=== PATIENT | male | born 1960 | race Caucasian/White ===

== ENCOUNTER 2017-02-06 16:57 | Emergency (ER) | payer OTHER ==
--- NOTE | ~2017-02-06 | CT71 ---
[facility] A Service of [facility] RADIOLOGY TEXT RESULTS PATIENT: TITA RAMON LOCATION: SED : 64 UNIT #: [id number] AGE: [address]: Stefani Cross SEX: M ORDER DR: [id number] [place] [id number] E MR#: [id number] Acc #: [id number] NAME: TITA RAMON : 1960 SEX: M STUDY DATE/TIME: 02/06/2017 17:27 UNIT: SED ROOM: STUDY DESCRIPTION: CT Head Wo Contrast Attending Physician: Stefani Cross P.A.-C. Ordering Physician: Stefani Cross P.A.-C. Primary Care Physician: Jovanna Shelley M.D. MEDICAL IMAGING REPORT This report is preliminary unless electronic signature is present. EXAM CT brain without contrast HISTORY Fell and hit head today. Headache. FINDINGS This CT exam was performed with one or more of the following radiation dose reduction techniques: Automatic exposure control, adjustment of mA and/or kV according to patient size, and iterative reconstruction. CT brain without contrast demonstrates soft tissue contusion over the anterior left frontal scalp. No intracranial hemorrhage, mass or edema. No midline shift or ventricular dilatation or extraaxial fluid collection. Opacification of mastoid air cells bilaterally and mucosal thickening in ethmoid air cells bilaterally and in the left frontal sinus. IMPRESSION 1. Negative CT brain. 2. Small anterior left frontal scalp contusion. 3. Paranasal sinus mucosal thickening. Dictated by... Adama Kitchen M.D. THIS IS AN ELECTRONICALLY VERIFIED REPORT Adama Kitchen M.D. at 02/06/2017 10:51 PM DFL/psc TD: 02/06/2017 20:53 JOB #: [id number] [facility] A Service [facility] RADIOLOGY TEXT RESULTS PATIENT: TITA RAMON LOCATION: SED : 64 UNIT #: [id number] AGE: [address]: Stefani Cross SEX: M ORDER DR: MEDICAL IMAGING REPORT Page 1 of 1
--- NOTE | ~2017-02-06 | CT101 ---
[facility] A Service of [facility] RADIOLOGY TEXT RESULTS PATIENT: TITA RAMON LOCATION: SED : 64 UNIT #: [id number] AGE: [address]: Stefani Cross SEX: M ORDER DR: [id number] [place] [id number] E MR#: [id number] Acc #: [id number] NAME: TITA RAMON : 1960 SEX: M STUDY DATE/TIME: 02/06/2017 17:29 UNIT: SED ROOM: STUDY DESCRIPTION: CT Maxillofacial Area Wo Cont Attending Physician: Stefani Cross P.A.-C. Ordering Physician: Stefani Cross P.A.-C. Primary Care Physician: Jovanna Shelley M.D. MEDICAL IMAGING REPORT This report is preliminary unless electronic signature is present. EXAM CT maxillofacial bones HISTORY Tripped and fell, hit face on tile floor today, headache. TECHNIQUE Axial noncontrast imaging was performed through the maxillofacial bones. This CT exam was performed with one or more of the following radiation dose reduction techniques: Automatic exposure control, adjustment of mA and/or kV according to patient size, and iterative reconstruction. FINDINGS Examination demonstrates a minimally displaced nasal bone fracture predominantly involving the right nasal ala. Mild soft tissue swelling. Sinuses and orbits appear intact. Left frontal, bilateral ethmoid sinus mucosal disease noted. Patient is edentulous. The mandible appears intact. IMPRESSION Minimally displaced nasal bone fracture with associated soft tissue swelling. Dictated by... Carine Haddad M.D. THIS IS AN ELECTRONICALLY VERIFIED REPORT Carine Haddad M.D. at 02/07/2017 1:06 PM NESS/abhijeet TD: 02/06/2017 20:30 [facility] A Service of [facility] RADIOLOGY TEXT RESULTS PATIENT: TITA RAMON LOCATION: SED : 64 UNIT #: [id number] AGE: [address]: Stefani Cross SEX: M ORDER DR: JOB #: [id number] MEDICAL IMAGING REPORT Page 1 of 1
--- NOTE | ~2017-02-06 | CR63 ---
[facility] A Service of [facility] RADIOLOGY TEXT RESULTS PATIENT: TITA RAMON LOCATION: SED : 64 UNIT #: [id number] AGE: [address]: Stefani Cross SEX: M ORDER DR: [id number] [place] [id number] E MR#: [id number] Acc #: [id number] NAME: TITA RAMON : 1960 SEX: M STUDY DATE/TIME: 02/06/2017 17:31 UNIT: SED ROOM: STUDY DESCRIPTION: CR Chest 2 View Attending Physician: Stefani Cross P.A.-C. Ordering Physician: Stefani Cross P.A.-C. Primary Care Physician: Jovanna Shelley M.D. MEDICAL IMAGING REPORT This report is preliminary unless electronic signature is present. EXAM Portable chest. HISTORY Cough today. FINDINGS 2 views of the chest demonstrate an oblique fracture of the lateral eighth rib with 4 mm separation of the fracture fragment. Small left pleural effusion and mild atelectasis in the left base. No pneumothorax. No additional infiltrates. Mild hypertrophic changes in the lower thoracic spine. Dictated by... Adama Kitchen M.D. THIS IS AN ELECTRONICALLY VERIFIED REPORT Adama Kitchen M.D. at 02/06/2017 10:51 PM TEGAN/amanda TD: 02/06/2017 21:25 JOB #: [id number] MEDICAL IMAGING REPORT Page 1 of 1
[~2017-02-06 16:57] MED LIST: ASPIRIN; BACTRIM DS TABL1 TA1 PO; BRILINTA60 MG; COZAAR; LASIX; LIPITOR; VOLTAREN75 MG PO
== END 2017-02-06 18:50 | disposition home or self-care (01) ==
LOC: SED 16:57
DX: S06.0X9A Concussion with loss of consciousness of unspecified duration, initial encounter (principal); S22.32XA Fracture of one rib, left side, initial encounter for closed fracture; S02.2XXA Fracture of nasal bones, initial encounter for closed fracture; S01.81XA Laceration without foreign body of other part of head, initial encounter; Z23 Encounter for immunization; R05 Cough; J44.9 Chronic obstructive pulmonary disease, unspecified; I10 Essential (primary) hypertension; Z87.891 Personal history of nicotine dependence; W01.0XXA Fall on same level from slipping, tripping and stumbling without subsequent striking against object, initial encounter; Y92.009 Unspecified place in unspecified non-institutional (private) residence as the place of occurrence of the external cause
CPT/HCPCS: 12011; 70450; 70486; 71020; 90471; 90715; 94640; 99284